=== PATIENT | male | born 1950 | race Caucasian/White ===

== ENCOUNTER 2016-07-21 23:26 | Emergency (ER) | payer BC | END 2016-07-22 01:00 | disposition home or self-care (01) | LOC: D.ER 23:26 | DX: S05.01XA Injury of conjunctiva and corneal abrasion without foreign body, right eye, initial encounter (principal); X58.XXXA Exposure to other specified factors, initial encounter; Y93.89 Activity, other specified; Y92.89 Other specified places as the place of occurrence of the external cause ==